=== PATIENT | male | born 1940 | race Caucasian/White ===

== ENCOUNTER 2022-08-29 06:18 | Day surgery (SDC) | payer OTHER | END 2022-08-29 12:15 | disposition home or self-care (01) | LOC: AMB-ENDOS 06:18 | PROVIDERS: ATTEND Colon & Rectal Surgery | DX: C20 Malignant neoplasm of rectum (principal); K57.30 Diverticulosis of large intestine without perforation or abscess without bleeding; K64.8 Other hemorrhoids; Z20.822 Contact with and (suspected) exposure to COVID-19 ==

== ENCOUNTER 2025-06-04 07:00 | Day surgery (SDC) | payer OTHER ==
[~2025-06-04 07:00] MED LIST: BUPIVACAINE HCL/MPF 0.5% 30ML VIAL ONE; CEFTRIAXONE SODIUM 2,000 MG VIAL ONE; DIBUCAINE 30 GM TUBE ONE; HEMOSTATIC MATRIX 1 KIT KIT TOP ONE; LIDOCAINE HCL 1%/EPINEPHRINE 20ML VIAL IJ ONE; METRONIDAZOLE/SODIUM CHLORIDE 500 MG/100 ML PIGGYBACK IV ONE; POVIDONE-IODINE 118 ML BOTT TOP ONE; TENORMIN25 MG
[2025-06-04] MEDS ORDERED: TYLENOL ARTHRI650 MG PO (08:51)
[2025-06-04] MEDS ORDERED: NEURONTIN300 MG PO (08:51)
== END 2025-06-04 13:40 | disposition home or self-care (01) ==
LOC: CIR.AMB 07:00
PROVIDERS: ATTEND Surgery
DX: C20 Malignant neoplasm of rectum (principal)